=== PATIENT | female | born 1925 | race Caucasian/White ===

== ENCOUNTER 2017-02-18 21:56 | Emergency (ER) | payer MEDICARE ==
[~2017-02-18] VITALS: Ht 157.5 cm; Wt 49.9 kg
[2017-02-18] MEDS ORDERED: VIT D2 1.25 MG (50,000 UNIT) (22:24)
[2017-02-18] MEDS ORDERED: ATORVASTATIN 10 MG TABLET (22:24)
--- NOTE | 2017-02-18 22:47 | NUR ---
MSE COMPLETED .PT D/C'D HOME. ACI GIVEN. PT AMBULATED W/O DIFF.
[2017-02-18 22:48] VITALS: BP 142/92
== END 2017-02-18 22:49 | disposition home or self-care (01) ==
LOC: ER 21:57
DX: L29.9 Pruritus, unspecified (principal); E78.00 Pure hypercholesterolemia, unspecified; Z88.0 Allergy status to penicillin
CPT/HCPCS: 99281; A4663